=== PATIENT | female | born 1960 | race Caucasian/White ===

== ENCOUNTER 2021-04-11 09:39 | Outpatient (CLI) | payer OTHER | END 2021-04-11 09:40 | disposition home or self-care (01) | LOC: CSHMRI 09:39 | PROVIDERS: ATTEND Anesthesiology Pain Medicine | DX: M48.061 Spinal stenosis, lumbar region without neurogenic claudication (principal); M47.816 Spondylosis without myelopathy or radiculopathy, lumbar region; M43.16 Spondylolisthesis, lumbar region; M25.78 Osteophyte, vertebrae; M48.07 Spinal stenosis, lumbosacral region | CPT/HCPCS: 72148 ==

== ENCOUNTER 2024-09-26 13:00 | Outpatient (CLI) | payer OTHER | END 2024-09-26 13:01 | disposition home or self-care (01) | LOC: CSHULT 13:00 | PROVIDERS: ATTEND Family Medicine | DX: R06.02 Shortness of breath (principal) | CPT/HCPCS: 93306 ==